=== PATIENT | female | born 1960 | race Caucasian/White ===

== ENCOUNTER → 2016-12-03 | Outpatient (CLI) | payer BC ==
--- NOTE | 2016-12-03 17:50 | MR ---
MRI of the brain with and without contrast HISTORY: Headaches. TECHNIQUE: T1-weighted sagittal, T2, FLAIR, and diffusion axial, postcontrast T1 axial and coronal vi ews of the brain are submitted. CONTRAST: 15 mL of Mag[place]vist FINDINGS: There is no evidence of acute ischemia. The ventricles, basal cisterns, and sulci overlying the co nvexities are consistent with the patient's age. There is no mass effect or enhancing mass. Craniocervical junction maintained. No cerebellopontine angle mass. There is normal enhancement of th e vasculature including the dural venous sinuses. White matter: There is no areas of abnormal signal visualized within the white matter. Changes of chronic sinusitis noted. IMPRESSION: 1. No acute intracranial process. No evidence of cerebellopontine angle mass.
== END | disposition home or self-care (01) ==
LOC: RADMRIMAIN 16:22
PROVIDERS: ATTEND Psychiatry & Neurology Neurology
DX: G50.0 Trigeminal neuralgia (principal); R51 Headache
CPT/HCPCS: 70553; A9577

== ENCOUNTER → 2016-12-29 | Outpatient (CLI) | payer BC ==
[2016-12-29 09:59] LABS: Cholesterol 211 mg/dL (<200); HDL Cholesterol 62 mg/dL (40-60); Triglycerides 113 mg/dL (<150)
== END | disposition home or self-care (01) ==
LOC: LABWHC1 09:02
PROVIDERS: ATTEND Family Medicine
DX: E78.5 Hyperlipidemia, unspecified (principal)
CPT/HCPCS: 36415; 80061

== ENCOUNTER → 2017-03-24 | Outpatient (CLI) | payer BC ==
[2017-03-24 11:07] LABS: Cholesterol 218 mg/dL (<200); HDL Cholesterol 75 mg/dL (40-60); Triglycerides 47 mg/dL (<150)
== END | disposition home or self-care (01) ==
LOC: LABWHC1 10:14
PROVIDERS: ATTEND Family Medicine
DX: E78.5 Hyperlipidemia, unspecified (principal)
CPT/HCPCS: 36415; 80061

== ENCOUNTER 2017-04-20 08:59 | Day surgery (SDC) | payer BC ==
[2017-04-16 13:17] VITALS: BMI 22.3
[~2017-04-20 08:59] MED LIST: LACTATED RINGERS 1,000 ML IV SCH
[2017-04-20 09:30] VITALS: RESP 16; TEMP 96.5
[2017-04-20] MEDS ORDERED: LIDOCAINE 1% 20 ML VIAL (10MG/ML) FOR IV START INTRADERMA ONE (09:50)
[2017-04-20] MEDS ORDERED: PROPOFOL 10 MG/ML 20 ML VIAL IV ONE (09:50)
[2017-04-20] MEDS ORDERED: LIDOCAINE 1% INJ 10MG/ML (20 ML MDV) ONE (09:50)
--- NOTE | 2017-04-20 09:57 | P.GSHP ---
History of Present Illness H&P Date: 04/20/17 Chief Complaint: Screening colonoscopy This a 57-year-old female referred from Dr. Lazo. Patient is today for screening colonoscopy. Her last colonoscopy was 14 years ago. - Constitutional Constitutional: Reports as per HPI Past Medical History Past Medical History: Hyperlipidemia History of Any Multi-Drug Resistant Organisms: None Reported Past Surgical History: Hernia Repair, Joint Replacement Additional Past Surgical History / Comment(s): LT RIC. HERNIA X 2. COLONOSCOPY Past Anesthesia/Blood Transfusion Reactions: No Reported Reaction Past Psychological History: No Psychological Hx Reported Smoking Status: Never smoker Past Alcohol Use History: None Reported Past Drug Use History: None Reported - Past Family History Mother Family Medical History: No Reported History Medications and Allergies Home Medications Medication Instructions Recorded Confirmed Type Atorvastatin Calcium [Lipitor] 20 mg PO DAILY 04/16/17 04/20/17 History Pantethine 300 Mg 300 mg PO DAILY 04/16/17 04/20/17 History Allergies Allergy/AdvReac Type Severity Reaction Status Date / Time No Known Allergies Allergy Verified 04/16/17 13:07 Surgical - Exam Vital Signs Temp Pulse Resp BP Pulse Ox 96.5 F L 76 16 111/60 100 04/20/17 09:28 04/20/17 09:28 04/20/17 09:28 04/20/17 09:28 04/20/17 09:28 - General well developed, no distress - Eyes PERRL - ENT normal pinna - Neck no masses - Respiratory normal expansion - Cardiovascular Rhythm: regular - Abdomen Abdomen: soft, non tender Assessment and Plan Plan: We'll perform screening colonoscopy.
--- NOTE | 2017-04-20 10:15 | P.OP ---
Date of Procedure: 04/20/17 Preoperative Diagnosis: Screening colonoscopy Postoperative Diagnosis: Screening colonoscopy Procedure(s) Performed: Colonoscopy Implants: Anesthesia: MAC Surgeon: Renny Oliver Pathology: none sent Condition: stable Disposition: PACU Indications for Procedure: Operative Findings: Description of Procedure: PROCEDURE: The patient was placed on the endoscopy table in the lateral position. Digital rectal examination was performed which revealed no abnormalities. s. Flexible colonoscope was then placed in the patient's anus and passed throughout the entire colon. The ileocecal valve was visualized. The cecum, ascending, transverse, descending and sigmoid colon were normal. The rectum was normal as well. There were no masses, polyps or diverticula noted in the entire colon. SUMMARY OF FINDINGS: Normal colonoscopy.
[2017-04-20 10:42] VITALS: BP 104/58; PULSE 68
== END 2017-04-20 11:03 | disposition home or self-care (01) ==
LOC: ORWHC2ENDO 08:59
PROVIDERS: ATTEND Surgery
DX: Z12.11 Encounter for screening for malignant neoplasm of colon (principal); E78.5 Hyperlipidemia, unspecified; Z79.899 Other long term (current) drug therapy
CPT/HCPCS: J2001; J2704; G0121; 45378

== ENCOUNTER → 2017-04-28 | Outpatient (CLI) | payer BC ==
[2017-04-28 07:53] LABS: Basophils % (A) 1 %; CH 33.4; CHCM 33.6; Eosinophils # (A) 0.1 k/uL (0-0.7); Eosinophils % (A) 1 %; HCT 45.1 % (34.0-46.0); HGB 14.7 gm/dL (11.4-16.0); Luc # (Auto) 0.09; Luc % (Auto) 2; Lymphocytes # (A) 1.3 k/uL (1.0-4.8); Lymphocytes % (A) 29 %; MCH 32.6 pg (25.0-35.0); MCHC 32.6 g/dL (31.0-37.0); MCV 99.8 fL (80.0-100.0); Mean Platelet Volume 7.7; Monocytes # (A) 0.2 k/uL (0-1.0); Monocytes % (A) 5 %; Neutrophils # (A) 2.7 k/uL (1.3-7.7); Neutrophils % (A) 62 %; RBC 4.52 m/uL (3.80-5.40); RDW 12.5 % (11.5-15.5); WBC 4.3 k/uL (3.8-10.6); WBC (Perox) 4.15
[2017-04-28 08:19] LABS: ALT 33 U/L (9-52); AST 32 U/L (14-36); Alkaline Phosphatase 57 U/L (38-126); Anion Gap 11 mmol/L; Blood Urea Nitrogen 19 mg/dL (7-17); Calcium 9.3 mg/dL (8.4-10.2); Carbon Dioxide 28 mmol/L (22-30); Chloride 105 mmol/L (98-107); Cholesterol 209 mg/dL (<200); Glucose 84 mg/dL (74-99); HDL Cholesterol 75 mg/dL (40-60); Non-African American GFR(MDRD) >60 (>60 ml/min/1.73 sqM); Potassium 3.9 mmol/L (3.5-5.1); Sodium 144 mmol/L (137-145); Total Bilirubin 0.7 mg/dL (0.2-1.3); Total Protein 7.2 g/dL (6.3-8.2); Triglycerides 79 mg/dL (<150); Uric Acid 3.1 mg/dL (3.7-7.4)
== END | disposition home or self-care (01) ==
LOC: LABWHC1 07:30
PROVIDERS: ATTEND Family Medicine
DX: E78.5 Hyperlipidemia, unspecified (principal); I10 Essential (primary) hypertension
CPT/HCPCS: 36415; 80053; 80061; 84439; 84443; 84550; 85025

== ENCOUNTER → 2017-06-30 | Outpatient (CLI) | payer BC ==
[2017-06-30 08:36] LABS: Uric Acid 3.3 mg/dL (3.7-7.4)
== END | disposition home or self-care (01) ==
LOC: LABWHC1 07:48
PROVIDERS: ATTEND Family Medicine
DX: E78.4 Other hyperlipidemia (principal)
CPT/HCPCS: 36415; 80061; 84550

== ENCOUNTER → 2018-06-23 | Outpatient (CLI) | payer BC ==
--- NOTE | 2018-06-29 11:48 | MM ---
Reason for exam: screening (asymptomatic). History: Patient is postmenopausal. Physical Findings: A clinical breast exam by your physician is recommended on an annual basis and results should be correlated with mammographic findings. MG 3D Screening Mammo W/Cad Bilateral CC and MLO view(s) were taken. No prior studies available for comparison. The breast tissue is heterogeneously dense. This may lower the sensitivity of mammography. Scattered benign calcifications. No significant changes when compared with prior studies. ASSESSMENT: Benign, BI-RAD 2 RECOMMENDATION: Routine screening mammogram of both breasts in 1 year.
== END | disposition home or self-care (01) ==
LOC: RADMAMWWP 07:52
PROVIDERS: ATTEND Family Medicine
DX: Z12.31 Encounter for screening mammogram for malignant neoplasm of breast (principal)
CPT/HCPCS: 77063; 77067